=== PATIENT | male | born 1950 | race Caucasian/White ===

== ENCOUNTER → 2017-09-19 | Outpatient (CLI) | payer OTHER | END | disposition home or self-care (01) | LOC: PCVCIMAG 10:56 | DX: I25.10 Atherosclerotic heart disease of native coronary artery without angina pectoris (principal); R06.00 Dyspnea, unspecified; Z95.5 Presence of coronary angioplasty implant and graft | CPT/HCPCS: 93325; 93351 ==

== ENCOUNTER → 2018-09-15 | Outpatient (CLI) | payer OTHER ==
--- NOTE | 2018-09-15 10:00 | PCVCIMAG ---
APPROVED REPORT Study performed: 09/15/2018 09:01:36 EXAM: Comprehensive 2D, Doppler, and color-flow Echocardiogram Patient Location: Echo lab Status: routine BSA: 2.31 HR: 71 bpmBP: 120/70 mmHg Rhythm: NSR Other Information Study Quality: Good Risk Factors: Cardiac Risk Factors: HTN, Hyperlipidemia Indications CAD Elevated calcium score, Edema 2D Dimensions IVSd: 13.06 (7-11mm)LVOT Diam: 24.81 (18-24mm) LVDd: 36.62 mm PWd: 11.64 (7-11mm)Ascending Ao: 39.05 (22-36mm) LVDs: 24.58 (25-40mm) Left Atrium: 41.01 (27-40mm) Aortic Root: 39.23 mm LV Single Plane 4CH: 61.19 % LV Single Plane 2CH: 60.05 % Biplane EF: 62.8 % Volumes Left Atrial Volume (Systole) Single Plane 4CH: 51.39 mLSingle Plane 2CH: 61.73 mL LA ESV Index: 26.00 mL/m2 Aortic Valve AoV Peak Edy.: 1.22 m/s AO Peak Gr.: 5.99 mmHgLVOT Max P.22 mmHg LVOT Max V: 1.14 m/s BRENNAN Vmax: 4.51 cm2 Mitral Valve E/A Ratio: 0.8 MV Decel. Time: 226.84 ms MV E Max Edy.: 0.53 m/s MV A Edy.: 0.66 m/s IVRT: 103.81 ms TDI E/Lateral E': 4.82E/Medial E': 8.83 Medial E' Edy.: 0.06 m/s Lateral E' Edy.: 0.11 m/s Pulmonary Valve PV Peak Gr.: 2.23 mmHg Pulmonary Vein P Vein S: 0.46 m/sP Vein A: 0.31 m/s P Vein D: 0.37 m/sP Vein A Dur.: 65.7 msec P Vein S/D Ratio: 1.24 Tricuspid Valve TR Peak Edy.: 2.30 m/s TR Peak Gr.: 21.13 mmHg Left Ventricle The left ventricle is normal size. There is normal LV segmental wall motion. There is normal left ventricular wall thickness. Left ventricular systolic function is normal. The left ventricular ejection fraction is within the normal range. LVEF is 60-65%. Grade I - abnormal relaxation pattern. Right Ventricle The right ventricle is normal size. The right ventricular systolic function is normal. Atria The left atrium size is normal. The right atrium size is normal. Aortic Valve The aortic valve is normal in structure. No aortic regurgitation is present. There is no aortic valvular stenosis. Mitral Valve The mitral valve is normal in structure. There is no mitral valve regurgitation noted. No evidence of mitral valve stenosis. Tricuspid Valve The tricuspid valve is normal in structure. Trace tricuspid regurgitation. Pulmonary artery pressure is 28mmHg. Pulmonic Valve The pulmonary valve is normal in structure. Trace pulmonic regurgitation. Great Vessels The aortic root is normal in size. IVC is normal in size and collapses >50% with inspiration. Pericardium There is no pericardial effusion. <Conclusion> The left ventricle is normal size. There is normal left ventricular wall thickness. Left ventricular systolic function is normal. The right ventricle is normal size. The left atrium size is normal. The right atrium size is normal. The aortic valve is normal in structure. There is no mitral valve regurgitation noted. Trace tricuspid regurgitation. Pulmonary artery pressure is 28mmHg.
== END | disposition home or self-care (01) ==
LOC: PCVCIMAG 08:47
PROVIDERS: ATTEND Internal Medicine Cardiovascular Disease
DX: I25.10 Atherosclerotic heart disease of native coronary artery without angina pectoris (principal); R93.1 Abnormal findings on diagnostic imaging of heart and coronary circulation
CPT/HCPCS: 93306

== ENCOUNTER → 2018-10-06 | Outpatient (CLI) | payer OTHER | END | disposition home or self-care (01) | LOC: PCVCCLINIC 08:50 | PROVIDERS: ATTEND Internal Medicine Cardiovascular Disease | DX: I25.10 Atherosclerotic heart disease of native coronary artery without angina pectoris (principal); E78.00 Pure hypercholesterolemia, unspecified | CPT/HCPCS: 36415 ==

== ENCOUNTER → 2019-03-23 | Outpatient (CLI) | payer OTHER | END | disposition home or self-care (01) | LOC: PCVCCLINIC 13:20 | PROVIDERS: ATTEND Internal Medicine Cardiovascular Disease | DX: I25.10 Atherosclerotic heart disease of native coronary artery without angina pectoris (principal); E78.00 Pure hypercholesterolemia, unspecified; R60.9 Edema, unspecified; M19.90 Unspecified osteoarthritis, unspecified site; Z79.899 Other long term (current) drug therapy | CPT/HCPCS: 93005; G0463 ==